=== PATIENT | female | born 1960 | race Caucasian/White ===

== ENCOUNTER → 2016-08-28 | Outpatient (CLI) | payer OTHER | LOC: BMCIMAGING 15:32 | PROVIDERS: ATTEND Physician Assistant | DX: R06.02 Shortness of breath (principal) ==

== ENCOUNTER → 2016-10-15 | Outpatient (CLI) | payer BC, OTHER | LOC: FIMAGING 11:26 | PROVIDERS: ATTEND Internal Medicine | DX: Z12.31 Encounter for screening mammogram for malignant neoplasm of breast (principal); Z80.3 Family history of malignant neoplasm of breast | CPT/HCPCS: G0202 ==

== ENCOUNTER → 2017-10-22 | Outpatient (CLI) | payer BC | LOC: FIMAGING 08:43 | PROVIDERS: ATTEND Internal Medicine | DX: Z12.31 Encounter for screening mammogram for malignant neoplasm of breast (principal); Z80.3 Family history of malignant neoplasm of breast ==

== ENCOUNTER → 2018-05-10 | Outpatient (CLI) | payer BC | LOC: BMCIMAGING 15:11 | PROVIDERS: ATTEND Internal Medicine | DX: M54.2 Cervicalgia (principal); E04.1 Nontoxic single thyroid nodule | CPT/HCPCS: 76536-PO ==

== ENCOUNTER → 2018-11-23 | Outpatient (CLI) | payer BC | LOC: FIMAGING 10:39 | PROVIDERS: ATTEND Internal Medicine | DX: R10.2 Pelvic and perineal pain (principal) ==